=== PATIENT | female | born 1980 | race Caucasian/White ===

== ENCOUNTER 2017-03-28 22:00 | Emergency (ER) | payer SELFPAY ==
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
[2017-03-28 23:34] VITALS: BP 117/71
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
== END 2017-03-28 23:30 | disposition home or self-care (01) ==
LOC: MW.ED 22:00
DX: S16.1XXA Strain of muscle, fascia and tendon at neck level, initial encounter (principal); F17.210 Nicotine dependence, cigarettes, uncomplicated; V89.2XXA Person injured in unspecified motor-vehicle accident, traffic, initial encounter; Y92.410 Unspecified street and highway as the place of occurrence of the external cause
CPT/HCPCS: 72040; 72040-26; 99282; 99283

== ENCOUNTER 2017-09-14 21:31 | Emergency (ER) | payer SELFPAY ==
[2017-09-14 21:41] VITALS: BP 117/86
--- NOTE | 2017-09-14 22:02 | EDM.PDOC ---
ED HPI GENERAL MEDICAL PROBLEM - General Chief Complaint: Skin Complaint Stated Complaint: PAIN/SWOLLEN LT CHEEK/PIMPLE Time Seen by Provider: 09/14/17 21:40 Source of Information: Reports: Patient History Limitations: Reports: No Limitations - History of Present Illness INITIAL COMMENTS - FREE TEXT/NARRATIVE: HISTORY AND PHYSICAL: History of present illness: Patient is a 36-year-old female who presents to the emergency room today with complaints of a sore to the left cheek. She states she recently "broke out" and noticed a small pimple to the left cheek. Initially she reported she took a needle and poked the center of that and was able to express a small amount of purulent drainage. She since has been using warm compresses and T-tree oil topically to the area. Over the past 2-3 days the area has doubled in size and is now painful to touch. She has no history of cystic acne. She denies any drug or alcohol abuse. Tdap is up to date Review of systems: As per history of present illness and below otherwise all systems reviewed and negative. Past medical history: As per history of present illness and as reviewed below otherwise noncontributory. Surgical history: As per history of present illness and as reviewed below otherwise noncontributory. Social history: No reported history of drug or alcohol abuse. Family history: As per history of present illness and as reviewed below otherwise noncontributory. Physical exam: General: Nontoxic-appearing 36 showed female. Alert and appropriate for age. She is anxious and unable to sit still on the bed. HEENT: Atraumatic, normocephalic, pupils reactive, negative for conjunctival pallor or scleral icterus, mucous membranes moist, throat clear, neck supple, nontender, trachea midline. Lungs: Clear to auscultation, breath sounds equal bilaterally, chest nontender. Heart: S1S2, regular, negative for clicks, rubs, or JVD. Abdomen: Soft, nondistended, nontender. Very slender. Negative for masses or costovertebral tenderness. Pelvis: Stable nontender. Genitourinary: Deferred. Rectal: Deferred. Extremities: Atraumatic, moves all per self. Neurovascular unremarkable. Neuro: Awake, alert, oriented. Cranial nerves II through XII unremarkable. Cerebellum unremarkable. Motor and sensory unremarkable throughout. Exam nonfocal. Skin: 2 cm cystic abscess to left cheek. Area is erythematous and nonfluctuant. Has a centralized crusty scab which is approximately 1/2 cm in diameter. Upon the physical examination of the patient she is writhing all over the bed and is unable to sit still. She states it is not painful but she is anxious as she does not want the area to be drained due to fear of pain and "needles and scalpels". Patient is unable to sit still for proper I&D of the area. The area itself is firm to touch, measures 2cm in diameter, and has a centralized crusty scab which is approximately 1/2 cm in diameter. Patient did sign a release of information to obtain a photograph of the cyst. This will be available to Dr. Sheffield when she is available (on-call) tomorrow morning with the patient consent. For all has been made for the patient to follow-up with her within the next few days. She'll be placed on Bactrim and continue with warm compresses. Diagnostics: [] Therapeutics: [] Impression: Cystic abscess, left cheek Plan: 1. Take the antibiotic as directed. 2. Warm compresses to the area. Do not manipulate the cyst. Gentle face washing. 3. May use Tylenol and/or ibuprofen as needed for pain management. 4. As we discussed please follow-up with Dr. Mai Sheffield, the plastic surgeon , within the next few days. Return to the ED as needed and as discussed. Definitive disposition and diagnosis as appropriate pending reevaluation and review of above. - Related Data Allergies Allergy/AdvReac Type Severity Reaction Status Date / Time No Known Allergies Allergy Verified 09/14/17 21:40 Home Meds: Home Meds . 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 History: Reports: None Neurological History: Reports: None Psychiatric History: Reports: None Endocrine/Metabolic History: Reports: None Dermatologic History: Reports: None - Infectious Disease History Infectious Disease History: Reports: Chicken Pox - Past Surgical History Respiratory Surgical History: Reports: None Female Surgical History: Reports: Tubal Ligation Social & Family History - Family History Family Medical History: Noncontributory - Tobacco Use Smoking Status *Q: Current Every Day Smoker Years of Tobacco use: 10 Packs/Tins Daily: 1 - Recreational Drug Use Recreational Drug Use: No ED ROS GENERAL - Review of Systems Review Of Systems: ROS reveals no pertinent complaints other than HPI. ED EXAM, SKIN/RASH Exam: See Below (See dictation) Course - Vital Signs Last Recorded V/S: Last Vital Signs Temp 98 F 09/14/17 21:31 Pulse 104 H 09/14/17 21:31 Resp 18 09/14/17 21:31 BP 117/86 09/14/17 21:31 Pulse Ox 98 09/14/17 21:31 Departure - Departure Time of Disposition: 22:02 Disposition: Home, Self-Care 01 Clinical Impression: Abscess - Discharge Information Referrals: PCP,None [Primary Care Provider] - Additional Instructions: My general discharge The following information is given to patients seen in the emergency department who are being discharged to home. This information is to outline your options for follow-up care. We provide all patients seen in our emergency department with a follow-up referral. The need for follow-up, as well as the timing and circumstances, are variable depending upon the specifics of your emergency department visit. If you don't have a primary care physician on staff, we will provide you with a referral. We always advise you to contact your personal physician following an emergency department visit to inform them of the circumstance of the visit and for follow-up with them and/or the need for any referrals to a consulting specialist. The emergency department will also refer you to a specialist when appropriate. This referral assures that you have the opportunity for follow-up care with a specialist. All of these measure are taken in an effort to provide you with optimal care, which includes your follow-up. Under all circumstances we always encourage you to contact your private physician who remains a resource for coordinating your care. When calling for follow-up care, please make the office aware that this follow-up is from your recent emergency room visit. If for any reason you are refused follow-up, please contact the [facility] Emergency Department at and asked to speak to the emergency department charge nurse. [facility] - [facility] [address] [place] [address], [address] [place] [address] 1. Take the antibiotic as directed. 2. Warm compresses to the area. Do not manipulate the cyst. Gentle face washing. 3. May use Tylenol and/or ibuprofen as needed for pain management. 4. As we discussed please follow-up with Dr. Mai Sheffield, the plastic surgeon , within the next few days. Return to the ED as needed and as discussed.
== END 2017-09-14 22:10 | disposition home or self-care (01) ==
LOC: MW.ED 21:31
DX: L02.01 Cutaneous abscess of face (principal); F17.210 Nicotine dependence, cigarettes, uncomplicated
CPT/HCPCS: 99282

== ENCOUNTER 2018-01-27 21:53 | Emergency (ER) | payer SELFPAY ==
[2018-01-27] MEDS ORDERED: Lidocaine 1% with EPINEPHrine 1:100,000 20 ML MDV INJECT ONE (22:21)
--- NOTE | 2018-01-27 22:27 | EDM.PDOC ---
ED HPI GENERAL MEDICAL PROBLEM - General Chief Complaint: Skin Complaint Stated Complaint: PINPUMS ARMPIT Time Seen by Provider: 01/27/18 22:00 - History of Present Illness INITIAL COMMENTS - FREE TEXT/NARRATIVE: HISTORY AND PHYSICAL: History of present illness: The patient is a healthy 37-year-old female who presents with complaints of several days of a bump in her right armpit which is increased in size and is very tender. She said initially was just a small bump or a pimple and she wore clothing that irritated it and it grew in size. It is not drained and she says she has had an abscess like this in the past but it was a years ago. 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 She has no systemic complaints of fever chills nausea vomiting or rashes elsewhere on her body. She is eating and drinking normally and is not as she has had a tubal ligation. Review of systems: As per history of present illness and below otherwise all systems reviewed and negative. Past medical history: As per history of present illness and as reviewed below otherwise noncontributory. Surgical history: As per history of present illness and as reviewed below otherwise noncontributory. Social history: No reported history of drug or alcohol abuse. Family history: As per history of present illness and as reviewed below otherwise noncontributory. Physical exam: General: Well-developed well-nourished thin female who is nontoxic and vital signs have been reviewed by me HEENT: Atraumatic, normocephalic, negative for conjunctival pallor or scleral icterus, mucous membranes moist, throat clear, neck supple, nontender, trachea midline. Lungs: Clear to auscultation, breath sounds equal bilaterally, chest nontender. Heart: S1S2, regular rhythm no overt murmurs Abdomen: Soft, nondistended, nontender. NABS Pelvis: Deferred Genitourinary: Deferred. Rectal: Deferred. Extremities: Atraumatic, negative for cords or calf pain. Neurovascular unremarkable. Full range of motion of all extremities including the right upper extremity. At the right axillary area there is a well demarcated raised 3.5 x 2.5 cm abscess which is fluctuant and bouncy. There is tenderness on palpation of this and there is no other erythema in the area. There is no lymphadenopathy in the axilla. Patient has no neurosensory changes in the distal arm. Neuro: Awake, alert, oriented. Cranial nerves II through XII unremarkable. Cerebellum unremarkable. Motor and sensory unremarkable throughout. Exam nonfocal. Diagnostics: [] Therapeutics: Lidocaine with epinephrine wound care Procedure note: After the procedure was explained to the patient and the area was prepped with Betadine 1% lidocaine with epinephrine was infused in a local fashion. Using an 11 blade scalpel incision was made and initially clear fluid came out which was followed by thick copious pus. The wound was explored using a hemostat and a quarter inch iodoform gauze was placed. A fluff gauze dressing was placed in the region and the patient tolerated the procedure well with no complication Impression: Axillary abscess, right Definitive disposition and diagnosis as appropriate pending reevaluation and review of above. right underarm Pain Score (Numeric/FACES): 3 - Related Data Allergies Allergy/AdvReac Type Severity Reaction Status Date / Time No Known Allergies Allergy Verified 01/27/18 22:10 Home Meds: Home Meds . 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 Neurological History: Reports: None Psychiatric History: Reports: None Endocrine/Metabolic History: Reports: None Dermatologic History: Reports: None - Infectious Disease History Infectious Disease History: Reports: Chicken Pox, MRSA - Past Surgical History Respiratory Surgical History: Reports: None Female Surgical History: Reports: Tubal Ligation Social & Family History - Family History Family Medical History: Noncontributory - Tobacco Use Smoking Status *Q: Current Every Day Smoker Years of Tobacco use: 3 Packs/Tins Daily: 0.5 - Caffeine Use Caffeine Use: Reports: Coffee, Soda - Recreational Drug Use Recreational Drug Use: No ED ROS GENERAL - Review of Systems Review Of Systems: ROS reveals no pertinent complaints other than HPI. ED EXAM, SKIN/RASH Exam: See Below (see dictation) Course - Vital Signs Last Recorded V/S: Last Vital Signs Temp 36.6 C 01/27/18 22:06 Pulse 94 01/27/18 22:06 Resp 17 01/27/18 22:06 BP 127/73 01/27/18 22:06 Pulse Ox 98 01/27/18 22:06 - Orders/Labs/Meds Meds: Medications Discontinued Medications Generic Name Dose Route Start Last Admin Trade Name Cong PRN Reason Stop Dose Admin Lidocaine/Epinephrine 20 ml 01/27/18 22:21 01/27/18 22:24 Xylocaine 1% With Epinephrine 1:100,000 INJECT 01/27/18 22:22 20 ml ONETIME ONE Administration Departure - Departure Time of Disposition: 22:39 Disposition: Home, Self-Care 01 Condition: Good Clinical Impression: Abscess of axilla, right - Discharge Information Instructions: Skin Abscess, [id number] Referrals: PCP,None [Primary Care Provider] - Forms: ED Department Discharge Additional Instructions: The following information is given to patients seen in the emergency department who are being discharged to home. This information is to outline your options for follow-up care. We provide all patients seen in our emergency department with a follow-up referral. The need for follow-up, as well as the timing and circumstances, are variable depending upon the specifics of your emergency department visit. If you don't have a primary care physician on staff, we will provide you with a referral. We always advise you to contact your personal physician following an emergency department visit to inform them of the circumstance of the visit and for follow-up with them and/or the need for any referrals to a consulting specialist. The emergency department will also refer you to a specialist when appropriate. This referral assures that you have the opportunity for followup care with a specialist. All of these measure are taken in an effort to provide you with optimal care, which includes your followup. Under all circumstances we always encourage you to contact your private physician who remains a resource for coordinating your care. When calling for followup care, please make the office aware that this follow-up is from your recent emergency room visit. If for any reason you are refused follow-up, please contact the [facility] emergency department at and ask to speak to the emergency department charge nurse. [facility] Primary care- Internal [place] [address] Please expect drainage from the area and remove and replace the dressing as needed. Please do not remove the gauze pack that was placed. Return to the ER in 36 hours to have the pack placed and the wound reevaluated. Please use all medication as prescribed including the antibiotics, Bactrim, and use over-the- counter Tylenol or Motrin for pain and add the stronger pain medication, [place], as needed. Return to the ER sooner as needed and as discussed. Please also schedule a follow-up appointment in our clinic next week.
[2018-01-27 22:46] VITALS: BP 110/70
== END 2018-01-27 22:45 | disposition home or self-care (01) ==
LOC: MW.ED 21:53
DX: L02.411 Cutaneous abscess of right axilla (principal); F17.210 Nicotine dependence, cigarettes, uncomplicated
CPT/HCPCS: 99282

== ENCOUNTER 2018-01-28 23:22 | Emergency (ER) | payer SELFPAY ==
[2018-01-28 23:42] VITALS: BP 126/76
--- NOTE | 2018-01-28 23:49 | EDM.PDOC ---
ED HPI GENERAL MEDICAL PROBLEM - General Chief Complaint: Wound Recheck Stated Complaint: ARMPIT ISSUES Time Seen by Provider: 01/28/18 23:41 - History of Present Illness INITIAL COMMENTS - FREE TEXT/NARRATIVE: HISTORY AND PHYSICAL: History of present illness: The patient is a 37-year-old female who was seen here last evening for an axillary abscess which I incised and drained and returns today for wound check. She states compliance with her antibiotics and says that the pack came out was doing a dressing change and she has had drainage from the area. She is feeling better overall. Review of systems: As per history of present illness and below otherwise all systems reviewed and negative. Past medical history: As per history of present illness and as reviewed below otherwise noncontributory. Surgical history: As per history of present illness and as reviewed below otherwise noncontributory. Social history: No reported history of drug or alcohol abuse. Family history: As per history of present illness and as reviewed below otherwise noncontributory. Physical exam: General: Well-developed well-nourished thin female who is somewhat anxious in the room but vital signs are noted by me and she is nontoxic At the right axillary area the dressing has been removed by nursing and the iodoform gauze was also out prior to that dressing removal. The wound looks significantly improved and is decompressed and there is only a scant amount of drainage and the area that was opened remains open. A small amount of pus was expressed by me on my evaluation and the wound will be irrigated by nursing. The dressing will be applied. Diagnostics: [] Therapeutics: Wound irrigation by nursing and dressing application Impression: Right axillary abscess recheck Definitive disposition and diagnosis as appropriate pending reevaluation and review of above. 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: Musculoskeletal History: Reports: None Neurological History: Reports: None Psychiatric History: Reports: None Endocrine/Metabolic History: Reports: None Hematologic History: Reports: None Immunologic History: Reports: None Oncologic (Cancer) History: Reports: None Dermatologic History: Reports: None - Infectious Disease History Infectious Disease History: Reports: None - Past Surgical History Head Surgeries/Procedures: Reports: None Respiratory Surgical History: Reports: None Female Surgical History: Reports: Tubal Ligation Social & Family History - Family History Family Medical History: Noncontributory - Tobacco Use Smoking Status *Q: Current Every Day Smoker Years of Tobacco use: 3 Packs/Tins Daily: 0.5 - Caffeine Use Caffeine Use: Reports: Coffee, Soda - Recreational Drug Use Recreational Drug Use: No ED ROS GENERAL - Review of Systems Review Of Systems: ROS reveals no pertinent complaints other than HPI. ED EXAM, GENERAL - Physical Exam Exam: See Below (See dictation) Course - Vital Signs Last Recorded V/S: Last Vital Signs Temp 36.4 C 01/28/18 23:39 Pulse 90 01/28/18 23:39 Resp 18 01/28/18 23:39 BP 126/76 01/28/18 23:39 Pulse Ox 97 01/28/18 23:39 Departure - Departure Time of Disposition: 23:48 Disposition: Home, Self-Care 01 Condition: Good Clinical Impression: Encounter for wound re-check - Discharge Information Referrals: PCP,None [Primary Care Provider] - Additional Instructions: The following information is given to patients seen in the emergency department who are being discharged to home. This information is to outline your options for follow-up care. We provide all patients seen in our emergency department with a follow-up referral. The need for follow-up, as well as the timing and circumstances, are variable depending upon the specifics of your emergency department visit. If you don't have a primary care physician on staff, we will provide you with a referral. We always advise you to contact your personal physician following an emergency department visit to inform them of the circumstance of the visit and for follow-up with them and/or the need for any referrals to a consulting specialist. The emergency department will also refer you to a specialist when appropriate. This referral assures that you have the opportunity for followup care with a specialist. All of these measure are taken in an effort to provide you with optimal care, which includes your followup. Under all circumstances we always encourage you to contact your private physician who remains a resource for coordinating your care. When calling for followup care, please make the office aware that this follow-up is from your recent emergency room visit. If for any reason you are refused follow-up, please contact the [facility] emergency department at and ask to speak to the emergency department charge nurse. [facility] Primary care- Internal [place] [address] Please wash the area and irrigate the wound as we discussed at least twice a day and expect more drainage from the area. The wound has not been repacked but you need to do wound care in order to continue its improvement. These continue to take the paramedics until they are finished. Please call and follow-up with one of our clinic providers next week and return to ER as needed and as discussed.
== END 2018-01-28 23:55 | disposition home or self-care (01) ==
LOC: MW.ED 23:22
DX: L02.411 Cutaneous abscess of right axilla (principal); F17.210 Nicotine dependence, cigarettes, uncomplicated
CPT/HCPCS: 99282